=== PATIENT | female | born 1965 | race Hispanic/Latino ===

== ENCOUNTER 2018-11-15 03:37 | Inpatient (IN) ==
[2018-11-15] MEDS ORDERED: NITROGLYCERIN TOP ONE (03:57)
--- NOTE | 2018-11-15 04:03 | PROVIDER DOCUMENTATION ---
HPI-General Adult - General Chief Complaint: Chest Pain Stated Complaint: Chest Pain Time Seen by Provider: 11/15/18 03:40 Source: patient Allergies/Adverse Reactions: Patient Allergies Allergy/AdvReac Type Severity Reaction Status Date / Time No Known Allergies Allergy Verified 07/28/18 18:29 Home Medications: Home Medication List Medication Instructions Recorded Confirmed Last Taken Type Albuterol [Albuterol Neb] 1 inh INH Q4H PRN 11/15/18 11/15/18 Unknown History Aspirin 325 mg PO DAILY 11/15/18 11/15/18 Unknown History Glipizide [Glipizide Xl] 10 mg PO DAILY 11/15/18 11/15/18 Unknown History Levothyroxine Sodium [Synthroid] 300 mcg PO DAILY 11/15/18 11/15/18 Unknown History Lisinopril 10 mg PO DAILY 11/15/18 11/15/18 Unknown History Metformin [Glucophage] 100 mg PO BID 11/15/18 11/15/18 Unknown History Montelukast Sodium [Singulair] 10 mg PO DAILY 11/15/18 11/15/18 Unknown History - History of Present Illness -Gen Adult Nature of Presenting Problems: 53 y/o F presents to the ED complaining of chest pain. States this began at about 2am and awoke her from sleep. with this has been short of breath and became diaphoretic. No cough or fever. pain sharp and left sided. Feels like her prior AL which occurred 7 months ago while in [place]. States at that time had a pacemaker and stent placed. Took 324mg of ASA when pain started and pain is now down to 2/10. Has been complaint with all her meds Review of Systems - Adult - REVIEW OF SYSTEMS - ADULT Constitutional: reports: no symptoms reported Eyes: reports: no symptoms reported Ears, Nose, Mouth & Throat: reports: no symptoms reported Cardiovascular: reports: chest pain Respiratory: reports: shortness of breath Gastrointestinal: reports: nausea Genitourinary: reports: no symptoms reported Musculoskeletal: reports: no symptoms reported Integumentary: reports: no symptoms reported Neurological: reports: no symptoms reported Psychiatric: reports: no symptoms reported Endocrine: reports: no symptoms reported Hematologic/Lymphatic: reports: no symptoms reported Allergic/Immunologic: reports: no symptoms reported All Other Systems: Reviewed and Negative Past History - Adult - PAST MEDICAL HISTORY-ADULT Review of Records: reports: Old Records Reviewed, Nursing Assessment Review, Medications Reviewed, Social history reviewed & non-contributory. Major Childhood Illnesses: reports: denies history Cardiovascular: reports: CAD, HTN, pacemaker Respiratory: reports: denies history Gastrointestinal: reports: denies history Obstetrical/Gynecological: reports: denies history Genitourinary: reports: denies history Musculoskeletal: reports: denies history Neurological: reports: denies history Endocrine/Immune: reports: Diabetes Other Conditions: reports: denies history - IMMUNIZATION STATUS Childhood Immunizations: See Nurse Assessment Flu Vaccine: See Nurse Assessment - FAMILY HISTORY Family History: reviewed, not pertinent Physical Exam-General - PHYSICAL EXAM-ADULT Initial Vital Signs Reviewed: Yes - CONSTITUTIONAL General Appearance: appears well, alert, no apparent distress - EYES Eyes: PERRL/EOMI - HEAD, EARS, NOSE, MOUTH & THROAT HENMT: normocephalic/atraumatic, moist mucous membranes, normal ENT inspection - NECK Neck: non-tender, full range of motion, supple - RESPIRATORY Respiratory: chest non-tender, lungs clear, normal breath sounds - CARDIOVASCULAR Cardiovascular: normal peripheral pulses, regular rate, rhythm, no edema, no JVD - GASTROINTESTINAL (ABDOMEN) Abdominal Exam: non tender, soft - MUSCULOSKELETAL Back Exam: normal inspection, no CVA tenderness, no vertebral tenderness Extremity: normal range of motion, no pedal edema, no calf tenderness - SKIN Integumentary: normal color, normal turgor, warm/dry - NEUROLOGIC Neurologic: grossly normal, no motor/sensory deficits - PSYCHIATRIC Psych/Mental Status: normal mood/affect, normal thought content, normal thought process, oriented x 3 Progress - PLAN OF CARE/RESULTS Progress/Plan/Lab Results: Vital Signs - 8 hr 11/15/18 03:45 Temperature 98.5 F Pulse Rate 77 Respiratory Rate 18 Blood Pressure 118/65 O2 Sat by Pulse Oximetry 95 Orders Category Date Time Status IV Insertion ORDERED Care 11/15/18 03:57 Active CHEST-1 VIEW [RAD] Stat Exams 11/15/18 03:57 Ordered BASIC METABOLIC PANEL [CHEM] Stat Lab 11/15/18 03:57 Uncollected CBC WITH DIFF [HEME] Stat Lab 11/15/18 03:57 Uncollected PRO B-NATRIURETIC PEPTIDE Stat Lab 11/15/18 03:57 Uncollected TROPONIN T Stat Lab 05/30/19 03:57 Uncollected Nitroglycerin Med 11/15/18 03:57 Discontinued 1 inch TOP NOW ONE chest pain will further evaluate for causes including but not limited to ACS, arrythmia, chf, pe, pna, gi causes, muscular pain Result Diagrams: 11/15/18 03:50 11/15/18 03:50 - REASSESSMENT Reassessment #1 Status: improving (chest pain resolved. ED work up unremarkable but presentation concerning for ACS. Will admit for further evaluation and treatment. Discussed case with Dr. Lyle, hospitalist, who will see and admit pt.) - EKG 1 Time of EKG reading by physician:: 03:38 EKG Read and Signed by:: Charlee Rodrigez EKG Interpretation (*Must complete 3 of following elements*): Normal (Paced Rhythm, rate 78) - XRAY 1 XRAY Study: Chest Impression: Normal Departure - Departure Date of Disposition Decision: 11/15/18 Time of Disposition Decision: 04:45 DIAGNOSIS: Chest pain Qualifiers: Chest pain type: unspecified Qualified Code(s): R07.9 - Chest pain, unspecified Disposition: ADMITTED INPATIENT 09 Certified Medical Emergency: Emergent Condition: Good Referrals and Follow-Ups: None,PCP [Primary Care Provider] - - Critical Care Note This patient required my direct & personal management of CC.: No Attestation - Physician/ HORTENCIA Attestation Patient care was provided by Advanced Practice Provider:: No The physician spent face to face time with patient:: Yes Advanced Practice Provider documentation review:: Supervising physician onsite and consulted in the evaluation and care of this patient. The physician did have a face to face encounter with the patient.
[2018-11-15] MEDS ORDERED: NS 500 ML IV ONE (04:04)
[2018-11-15 04:11] LABS: BASO# 0.03 X1000 (0.0-0.2); BASO% 0.4 % (0.0-0.8); EOS% 2.5 % (0.0-10.0); HEMATOCRIT 39.6 % (37.0-47.0); HEMOGLOBIN 12.7 g/dL (12.0-16.0); IMM GRAN# 0.04 X1000 (0.0-0.04); IMM GRAN% 0.5 % (0.0-0.5); LYMPH# 2.61 X1000 (1.2-3.4); LYMPH% 33.2 % (20.5-51.1); MCH 29.3 PG (27-31); MCHC 32.1 g/dL (33-37); MCV 91.5 FL (81-99); MONO% 6.4 % (1.7-9.3); MPV 11.7 FL (7.4-10.4); NEUT# 4.47 X1000 (1.4-6.5); PLT 194 X1000 (130-400); RBC 4.33 XMIL (4.2-5.4); RDW 14.3 % (11.5-14.5); WBC 7.85 X1000 (4.8-10.8)
[2018-11-15 04:29] LABS: AGAP 15; BUN 12 mg/dL (8-22); CALCIUM 9.2 mg/dL (8.8-10.2); CHLORIDE 106 mmol/L (98-107); COSMO 295; CREATININE 0.6 mg/dL (0.5-0.9); ESTIMATED GFR > 60; GLUCOSE 355 mg/dL (70-104); POTASSIUM 3.8 mmol/L (3.5-5.1); SODIUM 141 mmol/L (136-145); TCO2 20 mmol/L (25-35)
[2018-11-15] MEDS ORDERED: ALBUTEROL NEB INH PRN (05:05)
[2018-11-15] MEDS ORDERED: TYLENOL PO PRN (05:06)
[2018-11-15] MEDS ORDERED: ZOFRAN IV PRN (05:06)
[2018-11-15] MEDS ORDERED: NITROGLYCERIN SL PRN (05:06)
[2018-11-15] MEDS ORDERED: LOVENOX SUBQ SCH (05:15)
[2018-11-15 05:30] LABS: HEMOGLOBIN A1C 12.6 % (4.8-6.0)
[2018-11-15 06:19] LABS: URINE SOURCE CLEAN CATCH
[2018-11-15 06:27] LABS: BILIRUBIN URINE NEGATIVE (NEGATIVE); BLOOD URINE SMALL (NEGATIVE); COLOR YELLOW; GLUCOSE URINE >1000 mg/dL (NEGATIVE); KETONE URINE 20 mg/dL (NEGATIVE); LEUKOCYTES URINE SMALL (NEGATIVE); NITRITE URINE NEGATIVE (NEGATIVE); PH URINE 5.5; PROTEIN URINE TRACE mg/dL (NEGATIVE); SP GRAVITY URINE 1.044; TURBIDITY URINE CLEAR (CLEAR); UROBILINOGEN URINE NORMAL (NORMAL)
[2018-11-15 06:30] LABS: UR EPITHELIAL CELLS <10 /HPF (<10); URINE BACTERIA 1+ /HPF; URINE RBC <10 /HPF (<10); URINE WBC <10 /HPF (<10)
--- NOTE | 2018-11-15 06:32 | Diag Imaging Result Doc PS360 ---
CHEST-1 VIEW - 11/15/2018 INDICATION: chest pain COMPARISON: None FINDINGS: There is a left-sided single lead pacemaker in good position. The lungs are clear. Heart size is normal. No pneumothorax or pleural effusion. IMPRESSION: Negative exam. Electronically signed by Daljit Arias 11/15/2018 6:30 AM
--- NOTE | 2018-11-15 06:45 | HISTORY AND PHYSICAL ---
CHIEF COMPLAINT: Chest pain. HISTORY OF PRESENT ILLNESS: Ms. Gambino is a very pleasant 53-year-old female who comes into the emergency room after being woken up from sleep with sharp substernal chest pain that radiated into both her left and right-sided chest. She has a pacemaker related to symptomatic bradycardia that was put in 7 months ago in [place]. She has only lived in the [facility] for 1 month. She stated that she felt the pacemaker had shocked her; however, she was unsure if that actually happened. The chest pain continued for around a half of an hour. She said that she took nitroglycerin and aspirin and came into the emergency room where the chest pain was diminished but continued. Nitro paste was put on and the patient is now chest pain free. The first set of cardiac enzymes is negative. She will be admitted for further evaluation and treatment. PAST MEDICAL HISTORY: 1. Heart block with pacemaker implantation 7 months ago in [place]. 2. Coronary artery disease status post [place]. 3. Diabetes mellitus. 4. Hypothyroidism. 5. Hypertension. PREVIOUS SURGICAL HISTORY: 1. Pacemaker implantation. 2. Cholecystectomy. 3. Appendectomy. SOCIAL HISTORY: She is from [place], has lived in the for around 1 month. Lives with her . No alcohol, tobacco or illicit drugs. FAMILY HISTORY: Coronary artery disease, diabetes mellitus and CVA. HOME MEDICATIONS: 1. Levothyroxine sodium 300 mcg p.o. daily. 2. Lisinopril 10 mg p.o. daily. 3. Metformin 100 mg p.o. b.i.d. 4. Singulair 10 mg p.o. daily. 5. Glipizide 10 mg p.o. daily. 6. Aspirin 325 p.o. daily. 7. Albuterol 2.5 nebulizer q.4 hours p.r.n. ALLERGIES: No known drug allergies. REVIEW OF SYSTEMS: Fourteen point review of systems conducted with patient. Pertinent positives listed above in the HPI. All other systems reviewed and found to be negative. PHYSICAL EXAMINATION: VITAL SIGNS: Temp 98.5 degrees, pulse 75, respirations 13, blood pressure 108/71, oxygen saturation 98% on room air. GENERAL: Very pleasant 53-year-old female lying in the ER stretcher. Answers all questions appropriately. She is alert and oriented x3. She is in no acute distress. HEENT: Head is atraumatic, normocephalic. Pupils equal, round and react to light. Extraocular eye movement intact. Sclerae anicteric. Conjunctivae pink. Oral mucosa is moist. NECK: Supple. No JVD. No thyromegaly. Trachea is midline. No cervical lymphadenopathy. CARDIAC: S1, S2 appreciated. No murmurs, gallops, rubs. LUNGS: Clear to auscultation bilaterally. No rhonchi, wheeze, rubs. Symmetric rise and fall of respirations. ABDOMEN: Protuberant, soft, nondistended, nontender. Bowel sounds present in all 4 quadrants. Normoactive. No pulsatile masses. No organomegaly. EXTREMITIES: No cyanosis, clubbing or edema. 2+ pedal pulses. GENITOURINARY: I had a nurse assist me in assessing patient's genitourinary and fern area. She was complaining of a rash. Appears to be a candidal fungal infection. She has redness in the skin folds and creases as well as on her external area of her vagina. NEUROLOGICAL: Alert and oriented x3. Cranial nerves 2-12 grossly intact. DIAGNOSTIC DATA: Chest x-ray: No effusions, no infiltrates. LABORATORY DATA: CBC within normal limits. Chemistry panel within normal limits other than a glucose of 355. Hemoglobin A1c is 12.6. ASSESSMENT AND PLAN: 1. Chest pain, rule out acute myocardial infarction. Consult Dr. Albrecht. NPO at this time. 2. Coronary artery disease with previous myocardial infarction, aware. Continue nitro and aspirin daily. 3. Diabetes mellitus. Patient takes oral antihyperglycemics. I do not believe these are doing the job. She will likely need to be started on insulin. Her hemoglobin A1c is over 12. We will place patient on sliding scale insulin. She will likely need long-acting. Defer this to the primary team. 4. Hypertension. Continue lisinopril. 5. Candidiasis infection of the fern area. Skin folds need to be kept dry. We will add nystatin powder. A urine sample is being obtained. We will add Diflucan if patient appears to have candidiasis in her yeast. Further recommendations per patient's clinical course. Dictated by KALLI Stanley for Eamon Lyle MD cc: KALLI Stanley MD
[2018-11-15] MEDS ORDERED: PRILOSEC PO SCH (07:00)
[2018-11-15 07:28] VITALS: BP 100/78
[2018-11-15] MEDS ORDERED: SINGULAIR PO SCH (09:00)
[2018-11-15] MEDS ORDERED: MYCOSTATIN POWDER TOP SCH (09:00)
[2018-11-15] MEDS ORDERED: PRINIVIL PO SCH (09:00)
[2018-11-15] MEDS ORDERED: SYNTHROID PO SCH (09:00)
[2018-11-15] MEDS ORDERED: ASPIRIN PO SCH ×2 (09:00)
[2018-11-15] MEDS ORDERED: LEXISCAN ONE (13:26)
[2018-11-15] MEDS: HUMALOG SUBQ SCH ×3 (14:16→16:59)
--- NOTE | 2018-11-15 16:34 | Diag Imaging Result Document ---
PROCEDURE NAME: MYOCARDIAL PERF SCAN, STR/REST - 11/15/2018 STUDY: Rest/stress Lexiscan myocardial perfusion study. INDICATION: This is a 53-year-old female with a pacemaker, presenting with atypical chest pain. DESCRIPTION: The patient came into the nuclear laboratory, received resting injection of technetium 99 sestamibi 14.7 mCi. Multiple views of the heart were obtained at rest. Subsequently, the patient underwent infusion of Lexiscan 0.4 mg. At peak infusion, she was injected with technetium 99 sestamibi 47.7 mCi. Multiple tomographic views of the cardiac structures were obtained following the completion of the protocol. SUMMARY OF THE ELECTROCARDIOGRAPHIC PORTION OF THE STUDY: Resting ECG shows atrial sensing V paced rhythm, rate 75 beats per minute. Resting blood pressure 107/70. Resting ECG shows activity of atrial sensing V pacing pacemaker. During the protocol, the heart rate increased to 107 beats per minute. Blood pressure went up to 122/68. The patient reported no chest pain, shortness of breath, or palpitations. The ECG showed no changes. Following the completion of the test the heart rate and blood pressure returned back to baseline. In summary, the electrocardiographic response to infusion of Lexiscan is deemed to be inconclusive due to the presence of ventricular pacing activity. SUMMARY OF THE MYOCARDIAL PERFUSION PORTION OF THE STUDY: Poststress tomographic views of the left ventricle showed a focal apical anterior/apical inferior defect. This is of limited extent, mild to moderate in severity. The rest images showed basically that this defect is mostly fixed. The polar plots showed a fixed apical anterior/apical inferior defect of limited extent, mild to moderate in severity, probably corresponds to breast attenuation artifact versus pacemaker artifact. At any rate, there is no significant degree of inducible ischemia. The gated SPECT shows preserved left ventricular systolic function, ejection fraction of 62% with atypical contractility of the septum, best appreciated on the Myometrix protocol. The ejection fraction on that protocol is 69%. The lung/heart ratio is 0.3. The TID is 1.09. SUMMARY: This study shows: 1. Inconclusive electrocardiographic response to infusion of Lexiscan given the presence of pacemaker activity. 2. Probably normal poststress myocardial perfusion scan. There is no convincing scintigraphic evidence of pharmacologically induced myocardial ischemia. 3. The focal apical anterior/inferior defect that is predominantly fixed probably represents either pacemaker artifact or soft tissue attenuation artifact. 4. No convincing evidence of scar given normal wall motion of the apex. 5. Well preserved left ventricular systolic function, ejection fraction is 72%. Clinical correlation is recommended. cc: MD Vera Canseco PA
--- NOTE | 2018-11-15 17:10 | CARDIOLOGY CONSULTATION ---
DATE: 11/15/2018 CHIEF COMPLAINT: Chest pain. HISTORY OF PRESENT ILLNESS: Ms. Gambino is a 53-year-old female who presented to the emergency room after being awoken from sleep yesterday with stabbing chest discomfort located in the left mid and upper chest area. It was stabbing in nature and persisted for around 20 minutes. It was associated with a flipping type sensation around her pacemaker site. She did not have any nausea. She did have some diaphoresis. She has not had any history of cardiac issues prior to the pacemaker. PAST MEDICAL HISTORY: 1. Significant for heart block with pacemaker implantation 7 months ago in [place]. 2. Diabetes. 3. Hypothyroidism. 4. Hypertension. 5. CVA. SOCIAL HISTORY: [place] the [place]. Prior to that she lived in [facility]. She denies any tobacco, alcohol, or illicit drugs. FAMILY HISTORY: Significant for coronary disease, diabetes, and stroke. REVIEW OF SYSTEMS: A 10 system review of systems is negative except for those things mentioned in the HPI. PHYSICAL EXAMINATION: Vital signs: She is afebrile. Heart rate 65. Her blood pressure most recently was 100/78. General: She is in no acute distress. HEENT: Oropharynx is moist. Normal dentition. Eye examination shows pink conjunctivae, white sclerae. Neck: Shows no obvious thyromegaly or thyroid tenderness. Cardiovascular: She sounds to be in a regular rate and rhythm. She has no obvious murmurs. She has no S3. No lower extremity edema. Her pacemaker implant site is well healed. No evidence of erythema or induration. Chest: Clear bilaterally. She has no increased work of breathing. Abdomen: Soft, nontender, nondistended. She has no obvious organomegaly. Skin: Warm and dry throughout without any rashes. Neurological: Moving all extremities well. No lateralizing deficits. PERTINENT DATA: EKG reviewed by me early this morning at 3:38 demonstrated sinus rhythm with paced ventricular complexes. Her nuclear scan demonstrated a mild fixed defect in the distal inferior wall. Wall motion was intact in that area. Normal ejection fraction. Chest x-ray was unremarkable. Laboratory data shows a white count of 7.8, hematocrit 39, platelet count 194,000. Sodium 141, potassium 3.8, BUN 12, creatinine 0.6. Cardiac enzymes are negative. ASSESSMENT: Ms. Gambino is a 53-year-old female who presented with atypical chest discomfort. PLAN: She has had a negative cardiac workup. Her EKGs are unremarkable. Negative troponins. Her device was interrogated and does not show any signs of any abnormal function. From my standpoint, she could be discharged home. I will review this with the primary team. cc: Jb Manzanares MD
[2018-11-15] MEDS ORDERED: LEVEMIR SUBQ SCH (18:00)
--- NOTE | 2018-11-15 18:25 | ECHO REPORT ---
ORDER DATE: 11/15/2018 INTERPRETING PHYSICIAN: Evin Valerio MD INDICATION: Chest pain. M-MODE MEASUREMENTS: Left ventricle end diastole: 4.4 cm. Left ventricle end systole: 2.8 cm. Posterior wall: 1.0 cm. Interventricular septum: 1.0 cm. Left atrium: 4.2 cm. Aortic diameter: 2.8 cm. SUMMARY OF 2-DIMENSIONAL IMAGIN. Left ventricular function is normal. Ejection fraction is visually estimated at 65%. No wall motion abnormality is noted. 2. The right ventricle appears to be normal. 3. The aortic valve looks normal. Color flow mapping unremarkable. There may be a mild degree of regurgitation. 4. The mitral valve looks normal. Color flow mapping shows a very minimal degree of regurgitation. 5. Pulsed wave Doppler of mitral inflow shows mild reversal of the E/A ratio. The ratio is 0.8. 6. Tissue Doppler of septal and lateral mitral annulus averages 6.5 cm. The diastolic function is probably normal. 7. The tricuspid valve shows no significant regurgitation. 8. Pulmonary pressure cannot be accurately estimated here. 9. The pulmonic valve is unremarkable. 10.The right-sided chambers are not dilated. There is a suggestion of pacemaker lead in the right side of the heart. The lead appears to be somehow in a plane close to the mitral annulus. Could be a left ventricular lead also. 11.There is no pericardial effusion, mass, and no thrombus. 12.The left atrium did not appear to be dilated. The inferior vena cava is not dilated. CONCLUSION: In summary, the study shows 1. Normal left ventricular systolic function. 2. Mild degree of aortic and mitral regurgitation. 3. No pulmonary hypertension. 4. No significant diastolic dysfunction. 5. Optison was added to optimize visualization of the endocardium. The left atrium appeared to be mildly enlarged. Clinical correlation is recommended. cc: MD Vera Canseco PA
[2018-11-15] MEDS ORDERED: INSULIN PEN NEEDLES ONE (18:59)
--- NOTE | 2018-11-16 10:26 | EKG Report ---
Test Performed on : 11/15/2018 03:38:53 AM Test Reason : CHEST PAIN Blood Pressure : / mmHG Vent. Rate : 078 BPM Atrial Rate : 078 BPM P-R Int : 138 ms QRS Dur : 194 ms QT Int : 504 ms P-R-T Axes : 029 -46 095 degrees QTc Int : 574 ms Atrial-sensed ventricular-paced rhythm Abnormal ECG No previous ECGs available Unconfirmed Result
--- NOTE | 2018-11-16 12:30 | DISCHARGE SUMMARY ---
ADMISSION DATE: 11/15/2018 DISCHARGE DATE: 11/15/2018 DISCHARGE DIAGNOSES: 1. Chest pain, acute coronary syndrome has been ruled out. 2. History of coronary artery disease with previous myocardial infarction. 3. Heart block with pacemaker implantation 7 months ago in [place]. 4. Uncontrolled type 2 diabetes. 5. Hypothyroidism. 6. Hypertension. 7. Rash/likely fungal infection in the perineal and lower abdomen. PROCEDURES PERFORMED: 1. Chest x-ray dated 11/15/2018. Impression: Negative exam. 2. Myocardial perfusion scan, nuclear medicine, stress test dated 11/15/2018. Impression: Inconclusive electrocardiographic response to infusion of Lexiscan given the presence of pacemaker activity. Probably normal post stress myocardial perfusion scan. There are no convincing scintigraphic evidence of pharmacologically induced myocardial ischemia, focal apical anterior/inferior defect that he has predominantly fixed probably represents either pacemaker artifact or soft tissue attenuation artifact. No convincing evidence of a scar given normal wall motion of the apex, well preserved left ventricular systolic function, ejection fraction is 72%. HOSPITAL COURSE: A 53-year-old female with a past medical history significant for heart block with pacemaker implantation 7 months ago in [place], diabetes, hypothyroidism, hypertension, and possible CVA presented to the emergency department after being awoken from sleep the day before with chest discomfort located in the middle of the chest and upper chest area. As per the patient, it was stabbing in nature and persisted for around 15 to 20 minutes, associated with some diaphoresis but no nausea. No vomiting. She states that she felt the pacemaker had shocked her. However, she was not sure about that. She said that she took nitroglycerin and aspirin, and came to the emergency department where the chest pain was diminished but continued, nitro paste was put on and the patient's chest pain improved. Cardiology Department evaluated this patient. Troponin's were negative as well as the stress test, we do not feel that the stress test was showing really good evidence of acute coronary problems. She does have an elevated hemoglobin A1c, and also uncontrolled blood sugar. As per the patient, she has been on insulin in [place], but she is not using it at this moment. As per the patient, probably the increase of the blood sugar is because of the increased level of stress. I will give her long-acting insulin. As per the patient, she uses a high dose of insulin Lantus in [place], but she has not been getting that for a few months. I will start this patient on Levemir. 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 She will check the blood sugar on a daily basis at least 4 times, and she will readjust her medications along with her primary care doctor, which is in [place] as well. She is planning to come back to [place] soon I believe next week. Since there is no evidence of cardiac issues at this moment, and the pacemaker was interrogated and was negative for any changes. Cardiology Department contacted me, and they are okay to send this patient home. For the possible fungal infection that she has in the perineal area and lower abdomen, I will use nystatin powder. Again, follow up with the primary care doctor. At the moment of the discharge, this patient was in a stable medical condition. She was not complaining of chest pain or shortness of breath. We had a large conversation about diabetes and heart problems. DISCHARGE EXAMINATION: Vital signs: Temperature 97.9 degrees, pulse 65, respiratory rate 17, blood pressure 100/78, and oxygen saturation 98 on room air. HEENT: Head normocephalic. No trauma. PERRLA. Neck: Supple. No JVD. No masses. Central trachea. Chest: Clear to auscultation. No wheezing. No rales. Cardiovascular: RRR. Abdomen: Soft, protuberant, nontender, and nondistended. No hepatosplenomegaly. There is some rash/some kind of fungal infection, probably candidiasis at the level of the lower abdomen and inguinal area. Extremities: No edema. No clubbing. No cyanosis. Neurological: The patient is alert and oriented x3. No focal neurological deficits. LABORATORY: WBC 7.8, hemoglobin 12.7, hematocrit 39.6, and platelets 194,000. Sodium 141, potassium 3.8, chloride 106, bicarbonate 20, BUN 12, creatinine 0.6, glucose 355. Hemoglobin A1c 12.6, calcium 9.2 and CK 112. Troponin's negative x2. DISCHARGE MEDICATIONS: 1. Aspirin 325 mg p.o. daily. 2. Glipizide XL 10 mg p.o. daily. 3. Levemir 10 units subcu daily. 4. Levothyroxine 300 mcg p.o. daily. 5. Lisinopril 10 mg p.o. daily. 6. Metformin 1000 mg p.o. b.i.d. 7. Singulair 110 mg p.o. daily. 8. Nystatin powder 1 application twice a day. 9. Albuterol 1 inhalation q.4 hours as needed. TIME SPENT: Time discharging this patient 35 minutes. 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 She believed everything happened because she stopped using insulin. She will monitor her blood sugar 4 times a day, and she will contact her primary care doctor to continue treatment. cc: Issac Umaña MD
== END 2018-11-15 19:34 | disposition home or self-care (01) | DRG 313 ==
LOC: 3N 03:37 → ED 03:37 → OBSVTOIN 06:15 → SUATTDRO 06:15
PROVIDERS: ATTEND Internal Medicine
CPT/HCPCS: 71010; 71045; 78452; 80048; 80061; 81001; 82550; 82948; 83036; 83721; 83880; 84484; 85025; 87088; 93005; 93017; 93306; 94640; 96360; 96372; 99285; A9270; A9500; C8929; J1650; J1815; J2785; J7040; Q9957; XXXXX